=== PATIENT | female | born 2000 | race Caucasian/White ===

== ENCOUNTER 2019-12-12 19:26 | Emergency (ER) | payer OTHER, MEDICAID, SELFPAY ==
[2019-12-12 19:53] VITALS: BP 128/72; PULSE 94; RESP 20; TEMP 36.6; O2SAT 99; BMI 25.4
[2019-12-12 22:30] VITALS: BP 102/59; PULSE 74; RESP 16; O2SAT 98
--- NOTE | 2019-12-12 23:05 | ED.NAVMDI ---
HPI - Nausea/Vomiting/Diarrhea General Chief complaint: Nausea/Vomiting/Diarrhea Stated complaint: vomiting x2 days, vomited blood Time Seen by Provider: 12/12/19 21:10 Source: patient Mode of arrival: Family Vehicle Limitations: no limitations History of Present Illness HPI Narrative: 19-year-old female nonsmoker with history of asthma and GERD presents with her friend in the chief complaint of a few days of nausea, vomiting and diarrhea. She denies any fever or chills. She is not dizzy nor weak or lightheaded. She denies any exposure to sick contacts or obviously bad food. She denies any recent travel or use of antibiotics. She had an episode of vomiting earlier today that had what looked like blood specks in it at which point she became concerned and came to be seen. She denies any true hematemesis, coffee-ground emesis or dark and tarry stool. MD complaint: nausea, vomiting and diarrhea Onset (ago): day(s) Description of Vomiting: food contents and other Description of Diarrhea: watery Associated Abdominal Pain: No Severity: mild Relieving factors: none Exacerbating factors: none Associated symptoms: denies other symptoms Related Data Home Medications Medication Instructions Recorded Confirmed omeprazole magnesium [Prilosec OTC] 20 mg PO Q DAY #0 07/31/11 montelukast [Singulair] 10 mg PO QDAY #0 01/17/12 Previous Rx's Medication Instructions Recorded IBUPROFEN (#MOTRIN) 400 mg PO TIDP #30 06/03/11 MOMETASONE FUROATE (Asmanex) 0.22 mg IH Q HS PRN #1 01/31/12 ALBUTEROL (PROVENTIL INHALER) 0.09 mg IH Q6HP #1 05/05/12 Allergies Allergy/AdvReac Type Severity Reaction Status Date / Time Bee Venom Allergy Unknown LOCAL Uncoded 12/12/19 19:57 REACTION Penicillin Allergy Unknown ANAPHYLAXIS Uncoded 12/12/19 19:57 seafood Allergy Swelling Uncoded 12/12/19 19:57 of Lip/Tongue/Throat Review of Systems Constitutional Constitutional: Denies chills, Denies fatigue, Denies fever(s), Denies frequent falls, Denies lethargy and Denies weakness Eyes Eyes: Denies change in vision, Denies eye discharge, Denies irritation and Denies loss of vision ENT Ears, Nose, Mouth, and Throat: Denies change in voice, Denies dizziness, Denies neck pain, Denies sore throat and Denies throat swelling Cardiovascular Cardiovascular: Denies chest pain, Denies irregular heart rhythm, Denies lightheadedness, Denies palpitations, Denies dyspnea, Denies dyspnea on exertion and Denies orthopnea Respiratory Respiratory: Denies cough, Denies dyspnea, Denies dyspnea on exertion and Denies wheezing Gastrointestinal Gastrointestinal: Denies abdominal pain, Denies change in bowel habits, Reports diarrhea, Reports nausea and Reports vomiting Genitourinary Genitourinary: Denies hematuria, Denies flank pain, Denies urinary incontinence and Denies urinary urgency Musculoskeletal Musculoskeletal: Denies back pain, Denies muscle weakness, Denies neck pain, Denies numbness and Denies tingling Integumentary/Breasts Skin/Breast: Denies pruritus, Denies erythema, Denies rash and Denies wounds Neurologic Neurologic: Denies behavioral changes, Denies confusion, Denies dizziness, Denies frequent falls, Denies loss of vision, Denies numbness, Denies tingling and Denies weakness Psychiatric Psychiatric: Denies anxiety, Denies behavioral changes, Denies confusion, Denies depression, Denies homicidal ideation and Denies suicidal ideation Endocrine Endocrine: Denies fatigue, Denies flushing and Denies palpitations Hematologic/Lymphatic Hematologic/Lymphatic: Denies easy bruising Allergic/Immunologic Allergic/Immunologic: Denies urticaria, Denies throat swelling and Denies wheezing Patient History Social History Smoking Status: Current some day smoker Smoking Status: Current some day smoker tobacco type: cigarettes alcohol intake frequency: 0-2 drinks per day Substance Use Type: marijuana Exam Narrative Exam Narrative: GENERAL: [19] year old patient appears stated age. Well-nourished, well-developed patient, in mild distress. HEAD: Atraumatic. Normocephalic. EYES: Pupils equal round and reactive. Extraocular motions intact. No scleral icterus. No injection or drainage. ENT: Nose without bleeding, purulent drainage. Throat without erythema, tonsillar hypertrophy or exudate. Airway patent. NECK: Trachea midline. Non tender CARDIOVASCULAR: Regular rate and rhythm without murmurs, gallops, or rubs. RESPIRATORY: Clear to auscultation. Breath sounds equal bilaterally. No wheezes, rales, or rhonchi. GASTROINTESTINAL: Abdomen soft, non-tender, nondistended. EXTREMITIES: No edema or joint tenderness. BACK: Nontender without deformity or crepitance. No flank tenderness. NEURO: AOx3. SKIN: No rash or erythema of visible areas Initial Vital Signs Initial Vital Signs: Vital Signs Temperature 97.9 F 12/12/19 19:53 Pulse Rate 94 H 12/12/19 19:53 Respiratory Rate 20 12/12/19 19:53 Blood Pressure 128/72 12/12/19 19:53 Pulse Oximetry 99 12/12/19 19:53 Course Course Course Narrative: Multiple etiologies for patient's symptoms considered including: [Viral gastroenteritis versus other] Patient's symptoms improved or duration of stay with above-stated therapies. Findings and discharge diagnosis discussed with patient/family followed by verbalization of understanding Return precautions discussed with patient/family whom verbalize understanding. Orders Ordered: ED Orders 12/12/19 23:30 Comprehensive Metabolic Panel Stat Discontinued Medications Sodium Chloride (Normal Saline 0.9%) 1,000 mls @ 1,000 mls/hr IV BOLUS ONE Stop: 12/13/19 00:17 Last Infusion: 12/13/19 00:35 Dose: 0 mls/hr Documented by: Admin: 12/12/19 23:34 Dose: 1,000 mls/hr Documented by: SAMARA Ondansetron HCl (Zofran) 4 mg IV Q4HR PRN PRN Reason: Nausea And Vomiting Last Admin: 12/12/19 23:30 Dose: 4 mg Documented by: SAMARA Ondansetron HCl (Zofran Odt Prepack) 1 bottle MISC SEEINSTR ONE Stop: 12/13/19 00:36 Last Admin: 12/13/19 00:45 Dose: 1 bottle Documented by: SAMARA Pantoprazole Sodium (Protonix) 40 mg IV NOW ONE Stop: 12/12/19 23:19 Last Admin: 12/12/19 23:31 Dose: 40 mg Documented by: SAMARA Vital Signs Vital signs: Vital Signs - 8 hr 12/12/19 22:30 12/13/19 00:29 Pulse Rate 74 77 Respiratory Rate 16 Blood Pressure [Left Arm] 102/59 L 103/54 L Pulse Oximetry 98 97 MDM - Nausea/Vomiting/Diarrhea Lab Data Result diagrams: 12/12/19 23:30 Labs: Lab Results 12/12/19 Range/Units 23:30 Sodium 138 (137-145) mmol/L Potassium 3.6 (3.4-5.1) mmol/L Chloride 101 (98-107) mmol/L Carbon Dioxide 25 (22-32) mmol/L BUN 16 (7-17) mg/dL Creatinine 0.65 (0.52-1.04) mg/dL Estimated GFR > 60.0 (>60) mL/min BUN/Creatinine Ratio 24.6 H (6-22) Glucose 96 (70-100) mg/dL Calcium 10.0 (8.4-10.2) mg/dL Total Bilirubin 0.5 (0.2-1.3) mg/dL AST 28 (14-36) IU/L ALT 25 (<35) IU/L Alkaline Phosphatase 61 (38-126) U/L Total Protein 8.9 H (6.3-8.2) g/dL Albumin 5.1 H (3.5-5.0) g/dL Globulin 3.8 (1.7-4.1) g/dL Albumin/Globulin Ratio 1.3 (1.0-2.8) Discharge Plan Departure Patient Disposition: Home Clinical Impression: Vomiting and diarrhea Discharge Date/Time: 12/13/19 00:58 Instructions: Diarrhea, DI for Dehydration -- Adult, DI for Vomiting -- Adult Activity Restrictions/Additional Instructions: 1. Drink plenty of fluids with frequent small sips. 2. For the next 24 hours a clear liquid diet is advised. After that please employ a brat diet which would include bananas, rice, apples, toast. 3. Please take medications as directed. 4. Please follow-up with your doctor in the next 1-2 days. Call the office for an appointment. 5. Please return to the emergency Department for any worsening or persistent symptoms, such as increasing pain or fever. Prescriptions: No Action IBUPROFEN (#MOTRIN) 400 mg PO TIDP Qty: 30 RF: 0 omeprazole magnesium [Prilosec OTC] 20 MG tablet,delayed release (DR/EC) 20 mg PO Q DAY Qty: 0 RF: 0 montelukast [Singulair] 10 MG tablet 10 mg PO QDAY Qty: 0 RF: 0 MOMETASONE FUROATE (Asmanex) 0.22 mg IH Q HS PRNQty: 1 RF: 1 ALBUTEROL (PROVENTIL INHALER) 0.09 mg IH Q6HP Qty: 1 RF: 2 Referrals: [facility] [Outside]
[2019-12-12] MEDS: ONDANSETRON 4 MG/2 ML INJ IV (23:30)
[2019-12-12] MEDS: PANTOPRAZOLE 40 MG VIAL IV (23:31)
[2019-12-12] MEDS: SODIUM CHLORIDE 0.9% 1,000 ML 1000 ML IV (23:34)
[2019-12-12 23:51] LABS: Alanine Aminotransferase 25 IU/L (<35); Albumin 5.1 g/dL (3.5-5.0); Albumin Globulin Ratio 1.3 (1.0-2.8); Alkaline Phosphatase 61 U/L (38-126); Aspartate Aminotransferase 28 IU/L (14-36); BUN Creatinine Ratio 24.6 (6-22); Bilirubin Total 0.5 mg/dL (0.2-1.3); Blood Urea Nitrogen 16 mg/dL (7-17); Carbon Dioxide 25 mmol/L (22-32); Chloride 101 mmol/L (98-107); Estimated Glomerular Filt Rate > 60.0 mL/min (>60); Globulin 3.8 g/dL (1.7-4.1); Glucose 96 mg/dL (70-100); HEMOLYSIS < 15 (0-50); Potassium 3.6 mmol/L (3.4-5.1); Sodium 138 mmol/L (137-145); Total Protein 8.9 g/dL (6.3-8.2)
[2019-12-13 00:29] VITALS: BP 103/54; PULSE 77; O2SAT 97
[2019-12-13] MEDS: ONDANSETRON 4 MG ODT PREPACK 1 BOTTLE MISC (00:45)
== END 2019-12-13 00:58 | disposition home or self-care (01) ==
PROVIDERS: Emergency Provider Emergency Medicine
DX: R11.2 Nausea with vomiting, unspecified (principal); R19.7 Diarrhea, unspecified
CPT/HCPCS: 36415; 80053; 96361; 96374; 96375; 99284; C9113; J2405

== ENCOUNTER 2022-04-16 03:03 | Emergency (ER) | payer OTHER, MEDICAID, SELFPAY ==
[2022-04-16 03:27] VITALS: BP 125/64; PULSE 94; RESP 17; TEMP 36.2; O2SAT 98; BMI 24.9
[2022-04-16] MEDS: SODIUM CHLORIDE 0.9% 1,000 ML 1000 ML IV (04:04)
[2022-04-16] MEDS: ONDANSETRON 4 MG/2 ML INJ IV (04:05)
[2022-04-16 04:18] LABS: Add Manual Diff / Slide Review NO; Basophils Absolute Auto 0 /uL (0-100); Basophils Percent Auto 0.3 % (0-2); Eosinophils Absolute Auto 0 /uL (0-450); Eosinophils Percent Auto 0.1 % (2-4); Hematocrit 41.8 % (36-46); Hemoglobin 14.6 g/dL (12.0-16.0); Lymphocytes Absolute Auto 1500 /uL (1100-4500); Lymphocytes Percent Auto 16.5 % (25-40); Mean Corpuscular HGB Conc 34.9 % (30-36); Mean Corpuscular Hemoglobin 29.5 PG (26-34); Mean Corpuscular Volume 84.6 fL (80-100); Monocytes Absolute Auto 600 /uL (0-900); Monocytes Percent Auto 7.1 % (3-14); Neutrophils Absolute Auto 7000 /uL (1500-7000); Platelet Count 235 X10^3/uL (150-400); Red Blood Cell Count 4.94 X10^6/uL (4.0-5.2); Red Cell Distribution Width 12.8 % (11.6-14.8); White Blood Cell Count 9.2 X10^3/uL (4.5-11.0)
[2022-04-16 04:24] LABS: Alanine Aminotransferase 21 IU/L (<35); Albumin 4.9 g/dL (3.5-5.0); Albumin Globulin Ratio 1.4 (1.0-2.8); Alkaline Phosphatase 61 U/L (38-126); Aspartate Aminotransferase 24 IU/L (14-36); BUN Creatinine Ratio 22.6 (6-22); Blood Urea Nitrogen 12 mg/dL (7-17); Calcium 9.2 mg/dL (8.4-10.2); Carbon Dioxide 17 mmol/L (22-32); Chloride 100 mmol/L (98-107); Estimated Glomerular Filt Rate > 60 mL/min (>60); Globulin 3.6 g/dL (1.7-4.1); Glucose 83 mg/dL (70-100); HEMOLYSIS 23 (0-50); Potassium 3.4 mmol/L (3.4-5.1); Sodium 135 mmol/L (137-145); Total Protein 8.5 g/dL (6.3-8.2)
--- NOTE | 2022-04-16 04:48 | ED.NAVMDI ---
HPI - Nausea/Vomiting/Diarrhea General Chief complaint: Nausea/Vomiting/Diarrhea Stated complaint: MORNING SICKNESS 8 WEEKS ALONG Time Seen by Provider: 04/16/22 03:29 Source: patient Mode of arrival: Ambulatory History of Present Illness HPI Narrative: 21-year-old female nonsmoker at 8 weeks presents at the request of her Ob group for help with persistent nausea and vomiting. The patient has had increasing difficulty as her has progressed despite having access to Zofran and the equivalent of dye clear just. She had recently been seen at an outside facility when visiting her mother in [place] and was diagnosed with hyperemesis as well as UTI and is now on day 4 of Keflex. She reports no dysuria, frequency or urgency. She has no abdominal pain, vaginal bleeding or leakage of fluid. She states that most solids make her nauseated and she frequently vomits. She does have some burning in her epigastrium and has been belching. She is passing gas and having normal bowel movements. Related Data Home Medications Medication Instructions Recorded Confirmed omeprazole magnesium 20 mg 20 mg PO Q DAY ##0 07/31/11 tablet,delayed release (Prilosec OTC) montelukast 10 mg tablet 10 mg PO QDAY ##0 01/17/12 (Singulair) Previous Rx's Medication Instructions Recorded IBUPROFEN (#MOTRIN) 400 mg PO TIDP ##30 06/03/11 MOMETASONE FUROATE (Asmanex) 0.22 mg IH Q HS PRN ##1 01/31/12 ALBUTEROL (PROVENTIL INHALER) 0.09 mg IH Q6HP ##1 05/05/12 Allergies Allergy/AdvReac Type Severity Reaction Status Date / Time Bee Venom Allergy Unknown LOCAL Uncoded 12/12/19 19:57 REACTION Penicillin Allergy Unknown ANAPHYLAXIS Uncoded 12/12/19 19:57 seafood Allergy Swelling Uncoded 12/12/19 19:57 of Lip/Tongue/Throat Patient History Social History Smoking Status: Current some day smoker Smoking Status: Current some day smoker tobacco type: cigarettes alcohol intake frequency: 0-2 drinks per day Substance Use Type: marijuana Exam Narrative Exam Narrative: GENERAL: [21] year old patient appears stated age. Well-developed patient, in mild distress. HEAD: Atraumatic. Normocephalic. EYES: Pupils equal round and reactive. Extraocular motions intact. No scleral icterus. No injection or drainage. ENT: Nose without bleeding, purulent drainage. Throat without erythema, tonsillar hypertrophy or exudate. Airway patent. NECK: Trachea midline. Non tender CARDIOVASCULAR: Regular rate and rhythm without murmurs, gallops, or rubs. RESPIRATORY: Clear to auscultation. Breath sounds equal bilaterally. No wheezes, rales, or rhonchi. GASTROINTESTINAL: Abdomen soft, non-tender, nondistended. EXTREMITIES: No edema or joint tenderness. BACK: Nontender without deformity or crepitance. No flank tenderness. NEURO: AOx3. SKIN: No rash or erythema of visible areas Initial Vital Signs Initial Vital Signs: Vital Signs Temperature 97.1 F L 04/16/22 03:27 Pulse Rate 94 H 04/16/22 03:27 Respiratory Rate 17 04/16/22 03:27 Blood Pressure 125/64 04/16/22 03:27 Pulse Oximetry 98 04/16/22 03:27 Oxygen Delivery Method 04/16/22 03:27 Course Orders Ordered: ED Orders 04/16/22 04:05 Complete Blood Count AUTO DIFF Stat Comprehensive Metabolic Panel Stat Ketones (Beta-Hydroxybutyrate) Stat 04/16/22 04:55 Urinalysis and Microscopic Stat Famotidine (Famotidine 20 Mg/2 Ml Vial) 20 mg IV NOW TISHA Discontinued Medications Sodium Chloride (Normal Saline 0.9%) 1,000 mls @ 1,000 mls/hr IV BOLUS ONE Stop: 04/16/22 04:43 Last Admin: 04/16/22 04:04 Dose: 1,000 mls/hr Documented By: JOÃO Ondansetron HCl (Ondansetron 4 Mg/2 Ml Inj) 4 mg IV NOW ONE Stop: 04/16/22 03:46 Last Admin: 04/16/22 04:05 Dose: 4 mg Documented By: JOÃO Reevaluation(s) Reevaluation #1: Patient significantly improved after above-stated therapies, tolerating oral hydration without significant difficulty Vital Signs Vital signs: Vital Signs - 8 hr 04/16/22 03:27 Temperature 97.1 F L Pulse Rate 94 H Respiratory Rate 17 Blood Pressure 125/64 Pulse Oximetry 98 Oxygen Delivery Method Room Air MDM - Nausea/Vomiting/Diarrhea Lab Data Result diagrams: 04/16/22 04:05 04/16/22 04:05 Labs: Lab Results 04/16/22 04/16/22 04/16/22 Range/Units 04:05 04:05 04:05 WBC 9.2 (4.5-11.0) X10^3/uL RBC 4.94 (4.0-5.2) X10^6/uL Hgb 14.6 (12.0-16.0) g/dL Hct 41.8 (36-46) % MCV 84.6 (80-100) fL MCH 29.5 (26-34) PG MCHC 34.9 (30-36) % RDW 12.8 (11.6-14.8) % Plt Count 235 (150-400) X10^3/uL Neut % (Auto) 76.0 H (50-75) % Lymph % (Auto) 16.5 L (25-40) % [place] % (Auto) 7.1 (3-14) % Eos % (Auto) 0.1 L (2-4) % Baso % (Auto) 0.3 (0-2) % Neut # (Auto) 7000 (7966-9287) /uL Lymph # (Auto) 1500 (8569-1813) /uL [place] # (Auto) 600 (0-900) /uL Eos # (Auto) 0 (0-450) /uL Baso # (Auto) 0 (0-100) /uL Sodium 135 L (137-145) mmol/L Potassium 3.4 (3.4-5.1) mmol/L Chloride 100 (98-107) mmol/L Carbon Dioxide 17 L (22-32) mmol/L BUN 12 (7-17) mg/dL Creatinine 0.53 (0.52-1.04) mg/dL Estimated GFR > 60 (>60) mL/min BUN/Creatinine Ratio 22.6 H (6-22) Glucose 83 (70-100) mg/dL Calcium 9.2 (8.4-10.2) mg/dL Total Bilirubin 1.0 (0.2-1.3) mg/dL AST 24 (14-36) IU/L ALT 21 (<35) IU/L Alkaline Phosphatase 61 (38-126) U/L Total Protein 8.5 H (6.3-8.2) g/dL Albumin 4.9 (3.5-5.0) g/dL Globulin 3.6 (1.7-4.1) g/dL Albumin/Globulin Ratio 1.4 (1.0-2.8) Urine Color Urine Appearance Urine pH (4.5-8.0) Ur Specific [place] (1.000-1.035) Urine Protein (Negative) Urine Glucose (UA) (Negative) g/dL Urine Ketones (NEGATIVE) Urine Occult Blood (Negative) Urine Nitrate (Negative) Urine Bilirubin (NEGATIVE) Urine Urobilinogen (0.2) E.U./dL Ur Leukocyte Esterase (NEGATIVE) Ketones 2.91 H (<0.27) mmol/L 04/16/22 Range/Units 04:55 WBC (4.5-11.0) X10^3/uL RBC (4.0-5.2) X10^6/uL Hgb (12.0-16.0) g/dL Hct (36-46) % MCV (80-100) fL MCH (26-34) PG MCHC (30-36) % RDW (11.6-14.8) % Plt Count (150-400) X10^3/uL Neut % (Auto) (50-75) % Lymph % (Auto) (25-40) % [place] % (Auto) (3-14) % Eos % (Auto) (2-4) % Baso % (Auto) (0-2) % Neut # (Auto) (7577-8943) /uL Lymph # (Auto) (1182-0325) /uL [place] # (Auto) (0-900) /uL Eos # (Auto) (0-450) /uL Baso # (Auto) (0-100) /uL Sodium (137-145) mmol/L Potassium (3.4-5.1) mmol/L Chloride (98-107) mmol/L Carbon Dioxide (22-32) mmol/L BUN (7-17) mg/dL Creatinine (0.52-1.04) mg/dL Estimated GFR (>60) mL/min BUN/Creatinine Ratio (6-22) Glucose (70-100) mg/dL Calcium (8.4-10.2) mg/dL Total Bilirubin (0.2-1.3) mg/dL AST (14-36) IU/L ALT (<35) IU/L Alkaline Phosphatase (38-126) U/L Total Protein (6.3-8.2) g/dL Albumin (3.5-5.0) g/dL Globulin (1.7-4.1) g/dL Albumin/Globulin Ratio (1.0-2.8) Urine Color Yellow Urine Appearance Clear Urine pH 5.5 (4.5-8.0) Ur Specific [place] >=1.030 H (1.000-1.035) Urine Protein 1+ H (Negative) Urine Glucose (UA) Negative (Negative) g/dL Urine Ketones 3+ H (NEGATIVE) Urine Occult Blood Trace-intact (Negative) Urine Nitrate Negative (Negative) Urine Bilirubin Negative (NEGATIVE) Urine Urobilinogen 0.2 (0.2) E.U./dL Ur Leukocyte Esterase Negative (NEGATIVE) Ketones (<0.27) mmol/L Discharge Plan Departure Patient Disposition: Home Clinical Impression: Nausea and vomiting during Instructions: Nausea of (Alternative Therapy), DI for Dehydration -- Adult, DI for Vomiting -- Adult Activity Restrictions/Additional Instructions: *You have been diagnosed with [hyperemesis gravidarum] *What to do: *Please continue to take your regular medications as directed. Please consider adding [id number] Pepcid to help with the acid production as we discussed [ ] New medication prescriptions sent to your pharmacy: [ ] [ ] New medication written as a paper prescription [x ] No new medications given. *Please follow up with your primary care provider in 2-3 days, call for an appointment. Let them know you were seen in the Emergency Department and that we ask that you be seen in follow up. We will electronically transmit a record of today's note if your PCP is in our system *If you do not have a primary care provider please contact the [facility] Resource line at [phone]. They will ask some questions about your medical history and help get you set up with a doctor in the community. *Return to Emergency Department if you should have any new, worsening or concerning symptoms, such as [fever greater than 101 F, shaking chills, worsening pain, persistent vomiting or other bothersome symptoms] Prescriptions: No Action IBUPROFEN (#MOTRIN) 400 mg PO TIDP Qty: 30 0RF omeprazole magnesium [Prilosec OTC] 20 MG tablet,delayed release (DR/EC) 20 mg PO Q DAY Qty: 0 montelukast [Singulair] 10 MG tablet 10 mg PO QDAY Qty: 0 MOMETASONE FUROATE (Asmanex) 0.22 mg IH Q HS PRNQty: 1 1RF ALBUTEROL (PROVENTIL INHALER) 0.09 mg IH Q6HP Qty: 1 2RF
[2022-04-16 05:29] LABS: Ketones (Beta-Hydroxybutyrate) 2.91 mmol/L (<0.27)
[2022-04-16 05:57] LABS: Appearance Urine UA CLEAR; Bilirubin Urine UA NEGATIVE (NEGATIVE); Color Urine UA YELLOW; Glucose Urine UA NEGATIVE (Negative); Ketones Urine UA 3+ (NEGATIVE); Leukocyte Esterase Urine UA NEGATIVE (NEGATIVE); Nitrite Urine UA NEGATIVE (Negative); Occult Blood Urine UA TRACE-INTACT (Negative); Protein Urine UA 1+ (Negative); Specific Gravity Urine UA >=1.030 (1.000-1.035); Urobilinogen Urine UA 0.2 E.U./dL (0.2)
[2022-04-16 06:10] LABS: pH Urine UA 5.5 (4.5-8.0)
[2022-04-16 06:37] LABS: RBC Urine 0-1/HPF (0-5/HPF); Squamous Epithelial Cell Urine 1-5 /HPF (0-5/HPF); WBC Urine 1-5/HPF (0-5/HPF)
[2022-04-16 06:38] LABS: Bacteria Urine Few (2-10); Culture Indicated Urine Cult Not Indicated; Mucus Urine 1+ (Negative)
[2022-04-16] MEDS: FAMOTIDINE 20 MG/2 ML VIAL IV (07:22)
[2022-04-16 07:28] VITALS: BP 115/56; PULSE 89; RESP 18; O2SAT 98
== END 2022-04-16 07:37 | disposition home or self-care (01) ==
PROVIDERS: Emergency Provider Emergency Medicine
DX: O21.9 Vomiting of pregnancy, unspecified (principal); Z3A.08 8 weeks gestation of pregnancy
CPT/HCPCS: 80053; 81001; 82009; 85025; 96361; 96374; 96375; 99283; 99284; J2405

== ENCOUNTER 2024-01-11 17:14 | Emergency (ER) | payer OTHER, SELFPAY ==
[2024-01-11] VITALS (55 sets, daily range): BP systolic 101–151; BP diastolic 56–88; PULSE 85–131; RESP 12–46; TEMP 36.9; O2SAT 80–100; BMI 29.1
--- NOTE | 2024-01-11 17:22 | DI.CT.S_ITS ---
PROCEDURE: CT HEAD/BRAIN WO CON INDICATIONS: Trauma TECHNIQUE: Noncontrast 4.5 mm thick angled axial sections acquired from the foramen magnum to the vertex, with coronal and sagittal reformats. For radiation dose reduction, the following was used: automated exposure control, adjustment of mA and/or kV according to patient size. COMPARISON: None. FINDINGS: Image quality: Diagnostic. CSF spaces: Basal cisterns are patent. No extra-axial fluid collections. Ventricles are normal in size and shape. Brain: No midline shift. No intracranial masses or hemorrhage. Marks-white matter interface is normal. Skull and face: Calvarium and visualized facial bones are intact, without suspicious lesions. Sinuses: Visualized sinuses and mastoids are clear. IMPRESSION: No acute intracranial pathology. Dictated by: Rojas Mckenzie M.D. on 01/11/2024 at 19:00 Approved by: Rojas Mckenzie M.D. on 01/11/2024 at 19:00
--- NOTE | 2024-01-11 17:22 | DI.CT.S_ITS ---
PROCEDURE: CT CERVICAL SPINE WO CON INDICATIONS: Trauma TECHNIQUE: Noncontrast 3 mm thick sections acquired from the skull base to the T4 level. Sagittal and coronal reformats were then constructed. For radiation dose reduction, the following was used: automated exposure control, adjustment of mA and/or kV according to patient size. COMPARISON: None. FINDINGS: Image quality: Excellent. Bones: No fractures or dislocations. Visualized superior ribs are intact. Soft tissues: Prevertebral soft tissues are normal in thickness. No paravertebral hematomas. No apical pneumothoraces. IMPRESSION: No displaced fracture or traumatic subluxation. Dictated by: Rojas Mckenzie M.D. on 01/11/2024 at 18:59 Approved by: Rojas Mckenzie M.D. on 01/11/2024 at 18:59
--- NOTE | 2024-01-11 17:22 | DI.CT.S_ITS ---
PROCEDURE: CT CHEST ABD PEL W CON INDICATIONS: left chest pain, seatbelt sign, r wrist pain, left knee pain TECHNIQUE: After the administration of intravenous contrast, 5 mm thick sections acquired from the lung apices to the symphysis. 2.5 mm thick coronal and sagittal reformats were acquired. Additional 7 mm thick coronal maximum intensity projection (MIP) reformats acquired through the lungs. Optional 10-minute delayed imaging may be performed from the kidneys to the bladder. For radiation dose reduction, the following was used: automated exposure control, adjustment of mA and/or kV according to patient size. COMPARISON: None. FINDINGS: Image quality: Diagnostic. CHEST: Lower Neck: No enlarged lymph nodes. Thyroid: No thyroid nodules which require sonographic evaluation. Axillae: No enlarged lymph nodes. Chest Wall: No subcutaneous gas. Lungs and Pleura: Right-sided ground-glass nodules in the right upper lobe No acute airspace opacities. No pneumothorax or hemothorax. Mediastinum: No mediastinal hematomas. Heart size is normal. No pericardial effusion. Thoracic aorta and pulmonary arteries demonstrate normal size and enhancement. No mediastinal or hilar adenopathy. Esophagus is normal in caliber. No hiatal hernia. ABDOMEN: Liver: No lacerations. Gallbladder: No radiopaque gallstones or wall thickening. Biliary ducts: No biliary dilation. Pancreas: Homogenous enhancement. Spleen: Homogenous enhancement without laceration or hematoma. Adrenal Glands: Symmetric enhancement. Kidneys and Ureters: Symmetric enhancement. No hydronephrosis. No solid mass. No complex renal cystic lesion which requires follow up. Stomach and Bowel: Normal colonic caliber, without significant wall thickening. Peritoneum: No abnormal intraperitoneal fluid. No free air. Ventral Wall: No hernia. Abdominal Nodes: No retroperitoneal or mesenteric adenopathy by size criteria. Vessels: Aorta and inferior vena cava are normal in size. PELVIS: Pelvic Organs: Unremarkable. Bladder: Normal thickness. Pelvic Nodes: No enlarged lymph nodes. Miscellaneous: No inguinal hernias are seen. Bones: Pelvic ring and hip joints appear intact. Minimally displaced left anterior 3rd through 5th rib fractures. Displaced right wrist fractures. IMPRESSION: Minimally displaced left anterior 3rd through 5th rib fractures. A grouping of right-sided ground-glass nodules in the right upper lobe. Findings are suspicious for contusion. No pneumothorax or effusions. Right wrist fractures, better detailed on same day wrist x-rays. Dictated by: Rojas Mckenzie M.D. on 01/11/2024 at 18:54 Approved by: Rojas Mckenzie M.D. on 01/11/2024 at 18:58
--- NOTE | 2024-01-11 17:22 | DI.RAD.S_ITS ---
PROCEDURE: XR CHEST 1V INDICATIONS: seatbelt sign, deformity wrist, knee TECHNIQUE: One view of the chest was acquired. COMPARISON: None. FINDINGS: Surgical changes and devices: None. Lungs and pleura: Lungs are clear. No pleural effusions or pneumothorax. Mediastinum: Mediastinal contours appear normal. Heart size is normal. Bones and chest wall: No suspicious bony lesions. Overlying soft tissues appear unremarkable. IMPRESSION: No acute cardiopulmonary abnormality is seen. Dictated by: Rojas Mckenzie M.D. on 01/11/2024 at 18:12 Approved by: Rojas Mckenzie M.D. on 01/11/2024 at 18:12
--- NOTE | 2024-01-11 17:22 | DI.RAD.S_ITS ---
PROCEDURE: XR PELVIS 1-2V INDICATIONS: seatbelt sign, deformity wrist, knee TECHNIQUE: 1 view(s) of the pelvis acquired. COMPARISON: None. FINDINGS: Bones: No fractures or dislocations. No suspicious bony lesions. Soft tissues: Visualized bowel gas pattern is normal. No suspicious soft tissue calcifications. IMPRESSION: No acute bony abnormality. Dictated by: Rojas Mckenzie M.D. on 01/11/2024 at 18:18 Approved by: Rojas Mckenzie M.D. on 01/11/2024 at 18:18
--- NOTE | 2024-01-11 17:23 | DI.RAD.S_ITS ---
PROCEDURE: XR KNEE LT 3V INDICATIONS: Left knee TECHNIQUE: 2 views of the knee were acquired. COMPARISON: None. FINDINGS: Bones: Mildly displaced, intra-articular fracture of the tibial plateau. Soft tissues: Moderate joint effusion. No suspicious soft tissue calcifications. IMPRESSION: Intra-articular tibial plateau fracture. Dictated by: Rojas Mckenzie M.D. on 01/11/2024 at 18:18 Approved by: Rojas Mckenzie M.D. on 01/11/2024 at 18:19
--- NOTE | 2024-01-11 17:23 | DI.RAD.S_ITS ---
PROCEDURE: XR WRIST RT MIN 3V INDICATIONS: Wrist deformity and pain. TECHNIQUE: 3 views of the wrist were acquired. COMPARISON: [facility], WRIST MINIMUM 3 VIEWS RIGHT, 10/31/2011, 9:08. [facility], WRIST MINIMUM 3 VIEWS RIGHT, 10/17/2011, 12:11. FINDINGS: Bones: Displaced, foreshortened fractures of the distal radial and ulnar metadiaphysis. The distal fracture fragments are displaced medially and dorsally. Soft tissues: No suspicious soft tissue calcifications. IMPRESSION: Significantly displaced fractures of the distal ulna and radius. Dictated by: Rojas Mckenzie M.D. on 01/11/2024 at 18:16 Approved by: Rojas Mckenzie M.D. on 01/11/2024 at 18:17
[2024-01-11] MEDS: TET,DIPH,PERTUSS(ACELL),VAC/PF 0.5 ML SYRINGE IM (17:31)
[2024-01-11] MEDS: MORPHINE 4 MG/ML INJ IV (17:31)
[2024-01-11] MEDS: ONDANSETRON 4 MG/2 ML INJ IV ×3 (17:31→22:33)
[2024-01-11] MEDS: SODIUM CHLORIDE 0.9% 1,000 ML 150 ML IV (17:32)
[2024-01-11] MEDS: ALBUTEROL 2.5 MG/3 ML NEB (ADULT) INH (17:54)
[2024-01-11 17:59] LABS: Add Manual Diff / Slide Review NO; Basophils Absolute Auto 0 /uL (0-100); Basophils Percent Auto 0.3 % (0-2); Eosinophils Absolute Auto 500 /uL (0-450); Eosinophils Percent Auto 4.4 % (2-4); Hemoglobin 12.1 g/dL (12.0-16.0); Lymphocytes Absolute Auto 1600 /uL (1100-4500); Mean Corpuscular HGB Conc 32.7 % (30-36); Mean Corpuscular Hemoglobin 26.2 PG (26-34); Mean Corpuscular Volume 80.2 fL (80-100); Monocytes Absolute Auto 600 /uL (0-900); Monocytes Percent Auto 4.9 % (3-14); Neutrophils Absolute Auto 9300 /uL (1500-7000); Neutrophils Percent Auto 77.4 % (50-75); Platelet Count 215 X10^3/uL (150-400); Red Blood Cell Count 4.61 X10^6/uL (4.0-5.2); Red Cell Distribution Width 15.7 % (11.6-14.8)
[2024-01-11] MEDS: HYDROMORPHONE 1 MG INJ IV ×3 (17:59→22:32)
[2024-01-11 18:17] LABS: INR 1.2 (0.9-1.3); Prothrombin Time 13.7 SECONDS (9.4-12.5)
[2024-01-11 18:20] LABS: PTT Partial Thromboplastin Tim 27 SECONDS (25.1-36.5)
[2024-01-11 18:21] LABS: Lactate (Lactic Acid) 1.3 mmol/L (0.7-2.1)
[2024-01-11 18:23] LABS: Alanine Aminotransferase 22 IU/L (<35); Albumin 3.7 g/dL (3.5-5.0); Albumin Globulin Ratio 1.3 (1.0-2.8); Alkaline Phosphatase 71 U/L (38-126); Aspartate Aminotransferase 31 IU/L (14-36); BUN Creatinine Ratio 18.4 (6-22); Bilirubin Total 0.3 mg/dL (0.2-1.3); Blood Urea Nitrogen 9 mg/dL (7-17); Calcium 7.6 mg/dL (8.4-10.2); Carbon Dioxide 16 mmol/L (22-32); Chloride 116 mmol/L (98-107); Estimated Glomerular Filt Rate > 60 mL/min (>60); Ethanol (ETOH) < 10 mg/dL; Globulin 2.8 g/dL (1.7-4.1); Glucose 86 mg/dL (70-100); HEMOLYSIS < 15 (0-50); Lipase 93 U/L (23-300); Potassium 3.1 mmol/L (3.4-5.1); Sodium 140 mmol/L (137-145); Total Protein 6.5 g/dL (6.3-8.2)
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
[2024-01-11] MEDS: LORazepam 2 MG/ML INJ IV (18:54)
[2024-01-11] MEDS: KETAMINE 500 MG/5 ML INJ 100 MG IV (18:59)
--- NOTE | 2024-01-11 19:10 | PC.NURSE ---
Sugar tong splint placed on right wrist.
--- NOTE | 2024-01-11 19:12 | PC.NURSE ---
One attempt to reduction of right wrist, confirmed with bedside xray for proper placement. Simultaneously left knee immobilizer placed. Patient tolerating well.
--- NOTE | 2024-01-11 19:15 | DI.RAD.S_ITS ---
PROCEDURE: XR WRIST RT 2V INDICATIONS: post reduction TECHNIQUE: 2 views of the wrist were acquired. COMPARISON: [facility], CR, XR WRIST RT MIN 3V, 01/11/2024, 17:17. [facility], , WRIST MINIMUM 3 VIEWS RIGHT, 10/31/2011, 9:08. FINDINGS: Bones: Interval reduction, with improved alignment of the radius and ulna. The hamate appears dislocated. Soft tissues: No suspicious soft tissue calcifications. IMPRESSION: Interval reduction with improved alignment of the radial and ulnar fractures. Possible dislocation of the hamate. Dictated by: Rojas Mckenzie M.D. on 01/11/2024 at 19:28 Approved by: Rojas Mckenzie M.D. on 01/11/2024 at 19:30
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
--- NOTE | 2024-01-11 22:53 | PC.NURSE ---
pt c/o left pinky toe feeling like it was asleep, cap refill noted to be 3-5 sec, knee immobilizer loosened and cap refill now at <2 sec, pt c/o pain to the left outer foot with tenderness noted, Dr Olivas in to evaluate foot, no new orders noted
== END 2024-01-11 22:57 | disposition short-term general hospital (02) ==
PROVIDERS: Emergency Medicine; Emergency Provider Emergency Medicine
DX: S62.101A Fracture of unspecified carpal bone, right wrist, initial encounter for closed fracture (principal); S82.142A Displaced bicondylar fracture of left tibia, initial encounter for closed fracture; S22.42XA Multiple fractures of ribs, left side, initial encounter for closed fracture; V89.2XXA Person injured in unspecified motor-vehicle accident, traffic, initial encounter; Z23 Encounter for immunization
CPT/HCPCS: 25605; 29125; 70450; 71045; 71260; 72125; 72170; 73100; 73110; 73562; 74177; 80053; 80320; 83605; 83690; 85025; 85610; 85730; 86850; 86900; 86901; 90471; 93005; 94640; 96374; 96375; 96376; 99152; 99285; 90715; J1170; J2060; J2270; J2405; J7613; Q9967

== ENCOUNTER 2024-02-06 14:59 | Emergency (ER) | payer OTHER, MEDICAID, SELFPAY ==
[2024-02-06] VITALS (23 sets, daily range): BP systolic 84–122; BP diastolic 48–73; PULSE 81–110; RESP 10–24; TEMP 36.8; O2SAT 94–100; BMI 27.3
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
--- NOTE | 2024-02-06 15:27 | DI.RAD.S_ITS ---
PROCEDURE: XR CHEST 1V INDICATIONS: shortness of breath and sudden pain right side recent surger TECHNIQUE: One view of the chest was acquired. COMPARISON: [facility], CR, XR CHEST 1V, 01/11/2024, 17:17. FINDINGS: Surgical changes and devices: None. Lungs and pleura: Lungs are clear. No pleural effusions or pneumothorax. Mediastinum: Mediastinal contours appear normal. Heart size is normal. Bones and chest wall: No suspicious bony lesions. Overlying soft tissues appear unremarkable. IMPRESSION: No acute cardiopulmonary abnormality is seen. Dictated by: Simeon Shin M.D. on 02/06/2024 at 16:13 Approved by: Simeon Shin M.D. on 02/06/2024 at 16:13
--- NOTE | 2024-02-06 15:28 | DI.CT.S_ITS ---
PROCEDURE: CT ANGIO CHEST PE PROTOCOL INDICATIONS: severe pain hypotensive TECHNIQUE: After the administration of intravenous contrast, 2 mm thick sections acquired from the pulmonary apices to the posterior costophrenic angles. 3-dimensional maximum intensity projection (MIP) coronal and sagittal reformats were then acquired through the thorax. For radiation dose reduction, the following was used: automated exposure control, adjustment of mA and/or kV according to patient size. COMPARISON: [facility], CT, CT CHEST ABD PEL W CON, 01/11/2024, 18:08. FINDINGS: Image quality: Diagnostic. Pulmonary arteries: Pulmonary arteries are normal in size, and demonstrate no intraluminal filling defects to suggest central pulmonary embolism. Lower Neck: No enlarged lymph nodes. Thyroid: No thyroid nodules which require sonographic follow up, per consensus guidelines. Axillae: No enlarged lymph nodes. Chest Wall: Unremarkable. Bones: Unremarkable. Lungs and Pleura: No pneumothorax or pleural effusions. No consolidation or suspicious nodules. Heart: Heart size is normal. No pericardial effusion. Thoracic Vessels: No aortic aneurysm. Mediastinum and Sade: No enlarged lymph nodes. Esophagus: No wall thickening. No hiatal hernia. Upper Abdomen: Visualized upper abdomen solid organs and bowel loops appear normal. IMPRESSION: No pulmonary embolus. No acute cardiopulmonary process. Dictated by: Simeon Shin M.D. on 02/06/2024 at 16:17 Approved by: Simeon Shin M.D. on 02/06/2024 at 16:18
[2024-02-06] MEDS: HYDROMORPHONE 1 MG INJ IV (15:38)
[2024-02-06 15:39] LABS: Add Manual Diff / Slide Review NO; Basophils Absolute Auto 100 /uL (0-100); Eosinophils Absolute Auto 200 /uL (0-450); Eosinophils Percent Auto 3.2 % (2-4); Hematocrit 28.9 % (36-46); Hemoglobin 9.4 g/dL (12.0-16.0); Lymphocytes Absolute Auto 1900 /uL (1100-4500); Lymphocytes Percent Auto 34.9 % (25-40); Mean Corpuscular HGB Conc 32.6 % (30-36); Mean Corpuscular Hemoglobin 25.1 PG (26-34); Mean Corpuscular Volume 76.9 fL (80-100); Monocytes Absolute Auto 400 /uL (0-900); Monocytes Percent Auto 7.3 % (3-14); Neutrophils Absolute Auto 2900 /uL (1500-7000); Neutrophils Percent Auto 53.6 % (50-75); Platelet Count 343 X10^3/uL (150-400); Red Blood Cell Count 3.75 X10^6/uL (4.0-5.2); Red Cell Distribution Width 16.1 % (11.6-14.8); White Blood Cell Count 5.4 X10^3/uL (4.5-11.0)
[2024-02-06 15:54] LABS: Alanine Aminotransferase 20 IU/L (<35); Albumin 4.4 g/dL (3.5-5.0); Albumin Globulin Ratio 1.2 (1.0-2.8); Alkaline Phosphatase 108 U/L (38-126); Aspartate Aminotransferase 24 IU/L (14-36); BUN Creatinine Ratio 22.7 (6-22); Bilirubin Total 0.5 mg/dL (0.2-1.3); Blood Urea Nitrogen 15 mg/dL (7-17); Calcium 9.3 mg/dL (8.4-10.2); Carbon Dioxide 27 mmol/L (22-32); Chloride 106 mmol/L (98-107); Estimated Glomerular Filt Rate > 60 mL/min (>60); Globulin 3.8 g/dL (1.7-4.1); Glucose 94 mg/dL (70-100); HEMOLYSIS < 15 (0-50); Potassium 3.7 mmol/L (3.4-5.1); Sodium 140 mmol/L (137-145); Total Protein 8.2 g/dL (6.3-8.2)
[2024-02-06 16:01] LABS: Pregnancy Test Serum,Qual Negative (Negative)
[2024-02-06] MEDS: KETOROLAC 30 MG/ML VIAL 15 MG IV (17:10)
[2024-02-06] MEDS: diazePAM 10 MG/2 ML SYRINGE 2 MG IV (17:10)
== END 2024-02-06 17:57 | disposition home or self-care (01) ==
PROVIDERS: Emergency Provider Emergency Medicine
DX: M62.838 Other muscle spasm (principal); R07.9 Chest pain, unspecified
CPT/HCPCS: 36415; 71045; 71275; 80053; 81003; 84703; 85025; 93005; 96374; 96375; 99284; J1170; J1885; J3360

== ENCOUNTER 2024-02-12 13:57 | Emergency (ER) | payer OTHER, MEDICAID, SELFPAY ==
[2024-02-12] VITALS (12 sets, daily range): BP systolic 105–124; BP diastolic 60–68; PULSE 86–117; RESP 11–26; TEMP 37.1; O2SAT 97–100; BMI 28.3
[2024-02-12 15:27] LABS: Add Manual Diff / Slide Review NO; Basophils Absolute Auto 0 /uL (0-100); Basophils Percent Auto 0.7 % (0-2); Eosinophils Absolute Auto 100 /uL (0-450); Eosinophils Percent Auto 1.1 % (2-4); Hematocrit 29.6 % (36-46); Hemoglobin 9.7 g/dL (12.0-16.0); Lymphocytes Absolute Auto 1100 /uL (1100-4500); Lymphocytes Percent Auto 21.4 % (25-40); Mean Corpuscular HGB Conc 32.7 % (30-36); Mean Corpuscular Hemoglobin 24.2 PG (26-34); Monocytes Absolute Auto 500 /uL (0-900); Monocytes Percent Auto 8.7 % (3-14); Neutrophils Absolute Auto 3600 /uL (1500-7000); Neutrophils Percent Auto 68.1 % (50-75); Platelet Count 323 X10^3/uL (150-400); Red Cell Distribution Width 16.3 % (11.6-14.8); White Blood Cell Count 5.3 X10^3/uL (4.5-11.0)
[2024-02-12 15:40] LABS: Alanine Aminotransferase 50 IU/L (<35); Albumin Globulin Ratio 1.3 (1.0-2.8); Alkaline Phosphatase 119 U/L (38-126); Aspartate Aminotransferase 42 IU/L (14-36); Bilirubin Total 0.6 mg/dL (0.2-1.3); Blood Urea Nitrogen 18 mg/dL (7-17); Calcium 9.9 mg/dL (8.4-10.2); Carbon Dioxide 21 mmol/L (22-32); Chloride 105 mmol/L (98-107); Estimated Glomerular Filt Rate > 60 mL/min (>60); Glucose 103 mg/dL (70-100); HEMOLYSIS < 15 (0-50); Lipase 170 U/L (23-300); Potassium 4.1 mmol/L (3.4-5.1); Sodium 139 mmol/L (137-145)
[2024-02-12] MEDS: ONDANSETRON 4 MG/2 ML INJ IV (15:55)
[2024-02-12] MEDS: SODIUM CHLORIDE 0.9% 1,000 ML 1000 ML IV (16:48)
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
== END 2024-02-12 18:30 | disposition home or self-care (01) ==
PROVIDERS: Emergency Medicine; Emergency Provider Emergency Medicine; PCP Nurse Practitioner Family
DX: R11.2 Nausea with vomiting, unspecified (principal); R10.9 Unspecified abdominal pain
CPT/HCPCS: 36415; 80053; 81003; 81025; 83690; 85025; 96361; 96374; 99284; J2405

== ENCOUNTER 2024-04-24 13:44 | Emergency (ER) | payer OTHER, MEDICAID, SELFPAY ==
[2024-04-24] VITALS (8 sets, daily range): BP systolic 105–120; BP diastolic 63–74; PULSE 63–89; RESP 18; TEMP 36.3–36.8; O2SAT 97–100; BMI 27.4
--- NOTE | 2024-04-24 14:44 | ED.NAVMDI ---
HPI - Nausea/Vomiting/Diarrhea General Chief complaint: Nausea/Vomiting/Diarrhea Stated complaint: N/V/D Time Seen by Provider: 04/24/24 14:28 Source: patient Mode of arrival: Wheelchair History of Present Illness HPI Narrative: Patient is a 23-year-old female here for evaluation of upper abdominal pain and nausea and vomiting. She states the symptoms that she has currently are the same symptoms that she was seen at an outside emergency department for approximately 24-36 hours ago. He was able to review those notes. According to those notes she had a fairly extensive workup to include a CT scan of the abdomen pelvis. Was sent home with multiple medications to include both oral and rectal Phenergan. She states Zofran does not work for her. She has had symptoms like this in the past. She states she was told that it was related to marijuana use. She stated that she has not smoked for the past couple days. Denies any urinary symptoms. Related Data Home Medications Medication Instructions Recorded Confirmed omeprazole magnesium 20 mg 20 mg PO Q DAY ##0 07/31/11 tablet,delayed release (Prilosec OTC) montelukast 10 mg tablet 10 mg PO QDAY ##0 01/17/12 (Singulair) Previous Rx's Medication Instructions Recorded IBUPROFEN (#MOTRIN) 400 mg PO TIDP ##30 06/03/11 MOMETASONE FUROATE (Asmanex) 0.22 mg IH Q HS PRN ##1 01/31/12 ALBUTEROL (PROVENTIL INHALER) 0.09 mg IH Q6HP ##1 05/05/12 promethazine 25 mg tablet 25 mg PO Q6H PRN nausea and 02/12/24 vomiting #30 tabs Allergies Allergy/AdvReac Type Severity Reaction Status Date / Time Penicillins Allergy Severe Anaphylaxis Verified 04/24/24 13:56 bee venom protein (honey bee) Allergy Unknown LOCAL Verified 04/24/24 13:56 REACTION seafood Allergy Swelling Uncoded 01/11/24 17:25 of Lip/Tongue/Throat Review of Systems Constitutional Constitutional: Reports system reviewed and no additional complaints, except as documented Cardiovascular Cardiovascular: Reports system reviewed and no additional complaints, except as documented Respiratory Respiratory: Reports system reviewed and no additional complaints, except as documented Gastrointestinal Gastrointestinal: Reports system reviewed and no additional complaints, except as documented Genitourinary Genitourinary: Reports system reviewed and no additional complaints, except as documented Integumentary/Breasts Skin/Breast: Reports system reviewed and no additional complaints, except as documented Patient History Social History Smoking Status: Former smoker Smoking Status: Former smoker tobacco type: cigarettes alcohol intake frequency: 0-2 drinks per day Substance Use Type: marijuana Exam Initial Vital Signs Initial Vital Signs: Vital Signs Temperature 97.4 F L 04/24/24 13:57 Pulse Rate 88 04/24/24 13:57 Respiratory Rate 18 04/24/24 13:57 Blood Pressure 108/65 04/24/24 13:57 Pulse Oximetry 98 04/24/24 13:57 Oxygen Delivery Method Room Air 04/24/24 13:57 Const General: cooperative and No ill appearing HENMT Head: normal to inspection GI Inspection: normal to inspection and non-distended Palpation: No firm, No guarding and tender Skin General: no rashes or lesions noted Neuro General: patient alert, patient awake and moves all extremities Extrem General: capillary refill normal Course Orders Ordered: ED Orders 04/24/24 14:47 Complete Blood Count AUTO DIFF Stat Comprehensive Metabolic Panel Stat Lipase Stat Test Serum,Qual Stat 04/24/24 15:02 Urine Culture Stat Urine Microscopic Stat Discontinued Medications Haloperidol (Haloperidol 5 Mg/Ml Vial) 2.5 mg IV NOW ONE Stop: 04/24/24 14:46 Last Admin: 04/24/24 14:59 Dose: 2.5 mg Documented By: MIKHAIL Sodium Chloride (Normal Saline 0.9%) 1,000 mls @ 1,000 mls/hr IV BOLUS ONE Stop: 04/24/24 15:29 Last Infusion: 04/24/24 16:38 Dose: Infused Documented By: Admin: 04/24/24 14:58 Dose: 1,000 mls/hr Documented By: MIKHAIL Pantoprazole Sodium (Pantoprazole 40 Mg Vial) 40 mg IV NOW ONE Stop: 04/24/24 16:15 Last Admin: 04/24/24 16:38 Dose: 40 mg Documented By: MIKHAIL Vital Signs Vital signs: Vital Signs - 8 hr 04/24/24 13:57 04/24/24 14:28 04/24/24 14:29 Temperature 97.4 F L Pulse Rate 88 86 87 Respiratory Rate 18 Blood Pressure 108/65 Pulse Oximetry 98 100 100 Oxygen Delivery Method Room Air 04/24/24 14:29 04/24/24 14:30 04/24/24 14:30 Temperature Pulse Rate 89 Respiratory Rate Blood Pressure 112/63 105/70 Pulse Oximetry 100 Oxygen Delivery Method 04/24/24 15:00 04/24/24 15:30 04/24/24 16:00 Temperature Pulse Rate 78 63 89 Respiratory Rate Blood Pressure Pulse Oximetry 100 98 97 Oxygen Delivery Method 04/24/24 16:30 Temperature 98.3 F Pulse Rate Respiratory Rate Blood Pressure 120/74 Pulse Oximetry 98 Oxygen Delivery Method MDM - Nausea/Vomiting/Diarrhea Medical Records Attestation: I reviewed the patient's medical records. Lab Data Attestation: I reviewed the patient's lab results. 04/24/24 14:47 04/24/24 14:47 Labs: Lab Results 04/24/24 04/24/24 Range/Units 14:47 15:02 WBC 5.4 (4.5-11.0) X10^3/uL RBC 4.70 (4.0-5.2) X10^6/uL Hgb 10.2 L (12.0-16.0) g/dL Hct 31.9 L (36-46) % MCV 67.8 L (80-100) fL MCH 21.6 L (26-34) PG MCHC 31.9 (30-36) % RDW 18.6 H (11.6-14.8) % Plt Count 295 (150-400) X10^3/uL Neut % (Auto) 63.8 (50-75) % Lymph % (Auto) 29.0 (25-40) % [place] % (Auto) 6.2 (3-14) % Eos % (Auto) 0.1 L (2-4) % Baso % (Auto) 0.9 (0-2) % Neut # (Auto) 3500 (3592-1165) /uL Lymph # (Auto) 1600 (5921-3102) /uL [place] # (Auto) 300 (0-900) /uL Eos # (Auto) 0 (0-450) /uL Baso # (Auto) 0 (0-100) /uL RBC Morphology See below Anisocytosis 2+ H Microcytosis 1+ H Ovalocytes 1+ H Sodium 137 (137-145) mmol/L Potassium 3.3 L (3.4-5.1) mmol/L Chloride 108 H (98-107) mmol/L Carbon Dioxide 18 L (22-32) mmol/L BUN 10 (7-17) mg/dL Creatinine 0.60 (0.52-1.04) mg/dL Estimated GFR > 60 (>60) mL/min BUN/Creatinine Ratio 16.7 (6-22) Glucose 94 (70-100) mg/dL Calcium 9.1 (8.4-10.2) mg/dL Total Bilirubin 0.5 (0.2-1.3) mg/dL AST 22 (14-36) IU/L ALT 19 (<35) IU/L Alkaline Phosphatase 77 (38-126) U/L Total Protein 7.5 (6.3-8.2) g/dL Albumin 4.4 (3.5-5.0) g/dL Globulin 3.1 (1.7-4.1) g/dL Albumin/Globulin Ratio 1.4 (1.0-2.8) Lipase 209 (23-300) U/L Serum , Qual Negative (Negative) Urine RBC 0-1/hpf (0-5/HPF) Urine WBC 5-10/hpf H (0-5/HPF) Ur Squamous Epith Cells 1-5 /hpf (0-5/HPF) Amorphous Sediment 3+ Urine Bacteria Few (2-10) H (None) Ur Culture Indicated? Specimen cultured Vol Urine Centrifuged 10ml (spun) Point of Care Testing Test Results Negative Urine Dip Bedside Urine Glucose Negative Bedside Urine Bilirubin - Negative Bedside Urine Ketone +++ 80 Urine Specific [place] 1.010 Bedside Urine Occult Blood - Negative Bedside Urine pH 8.5 Bedside Urine Protein +/- 15 Bedside Urine Urobilinogen - Negative Bedside Urine Nitrite - Negative Bedside Urine Leukocytes ++ 125 Esterase MDM Narrative Medical decision making narrative: Like patient had a very extensive workup a couple days ago. We will hold on further CT scans for now. Labs are unremarkable. Patient was given a dose of Haldol. Potentially helped her symptoms somewhat but upon re-evaluation she stated that she would rather just be discharged home and take the medications that she has at home. No fevers. No indication for admission to hospital or surgical consultation. She was given return precautions. She expressed understanding and. Discharge Plan Departure Patient Disposition: Home Clinical Impression: Abdominal pain, Nausea & vomiting Instructions: DI for Abdominal Pain-Adult, Nausea and Vomiting-Adult Activity Restrictions/Additional Instructions: I recommend that you continue to take the medicine that you were given from the emergency department visit last evening. Try to increase your fluid intake by drinking small amounts frequently or potentially just using ice chips. I recommend that you abstain from smoking marijuana as this may make your symptoms worsen. Return to the emergency department for new symptoms. Prescriptions: No Action IBUPROFEN (#MOTRIN) 400 mg PO TIDP Qty: 30 0RF omeprazole magnesium [Prilosec OTC] 20 MG tablet,delayed release (DR/EC) 20 mg PO Q DAY Qty: 0 montelukast [Singulair] 10 MG tablet 10 mg PO QDAY Qty: 0 MOMETASONE FUROATE (Asmanex) 0.22 mg IH Q HS PRNQty: 1 1RF ALBUTEROL (PROVENTIL INHALER) 0.09 mg IH Q6HP Qty: 1 2RF promethazine 25 mg tablet 25 mg PO Q6H PRN (Reason: nausea and vomiting) Qty: 30 0RF Referrals: Nicolette Galvan ARNP [Primary Care Provider] - Stand Alone Forms: Patient Portal/API
[2024-04-24 14:53] LABS: Add Manual Diff / Slide Review NO; Basophils Absolute Auto 0 /uL (0-100); Basophils Percent Auto 0.9 % (0-2); Eosinophils Absolute Auto 0 /uL (0-450); Eosinophils Percent Auto 0.1 % (2-4); Hematocrit 31.9 % (36-46); Hemoglobin 10.2 g/dL (12.0-16.0); Lymphocytes Absolute Auto 1600 /uL (1100-4500); Mean Corpuscular HGB Conc 31.9 % (30-36); Mean Corpuscular Hemoglobin 21.6 PG (26-34); Mean Corpuscular Volume 67.8 fL (80-100); Monocytes Absolute Auto 300 /uL (0-900); Monocytes Percent Auto 6.2 % (3-14); Neutrophils Absolute Auto 3500 /uL (1500-7000); Neutrophils Percent Auto 63.8 % (50-75); Platelet Count 295 X10^3/uL (150-400); Red Cell Distribution Width 18.6 % (11.6-14.8); White Blood Cell Count 5.4 X10^3/uL (4.5-11.0)
[2024-04-24] MEDS: SODIUM CHLORIDE 0.9% 1,000 ML 1000 ML IV (14:58)
[2024-04-24] MEDS: HALOPERIDOL 5 MG/ML VIAL 2.5 MG IV (14:59)
[2024-04-24 15:05] LABS: Alanine Aminotransferase 19 IU/L (<35); Albumin 4.4 g/dL (3.5-5.0); Albumin Globulin Ratio 1.4 (1.0-2.8); Alkaline Phosphatase 77 U/L (38-126); Aspartate Aminotransferase 22 IU/L (14-36); BUN Creatinine Ratio 16.7 (6-22); Bilirubin Total 0.5 mg/dL (0.2-1.3); Blood Urea Nitrogen 10 mg/dL (7-17); Calcium 9.1 mg/dL (8.4-10.2); Carbon Dioxide 18 mmol/L (22-32); Chloride 108 mmol/L (98-107); Estimated Glomerular Filt Rate > 60 mL/min (>60); Globulin 3.1 g/dL (1.7-4.1); Glucose 94 mg/dL (70-100); HEMOLYSIS < 15 (0-50); Lipase 209 U/L (23-300); Potassium 3.3 mmol/L (3.4-5.1); Sodium 137 mmol/L (137-145); Total Protein 7.5 g/dL (6.3-8.2)
[2024-04-24 15:13] LABS: Anisocytosis 2+
[2024-04-24 15:14] LABS: Microcytosis 1+; Ovalocytes 1+
[2024-04-24 15:15] LABS: Pregnancy Test Serum,Qual Negative (Negative)
[2024-04-24 16:02] LABS: RBC Urine 0-1/HPF (0-5/HPF); Urine Volume 10mL (spun)
[2024-04-24 16:03] LABS: Amorphous Sediment Urine 3+; Bacteria Urine Few (2-10); Culture Indicated Urine Specimen Cultured; Squamous Epithelial Cell Urine 1-5 /HPF (0-5/HPF); WBC Urine 5-10/HPF (0-5/HPF)
[2024-04-24] MEDS: PANTOPRAZOLE 40 MG VIAL IV (16:38)
--- NOTE | 2024-04-24 16:47 | PC.NURSE ---
N/V x3 days. Pt states droperidol helps her nausea. Pt seen for same recently.
== END 2024-04-24 16:48 | disposition home or self-care (01) ==
PROVIDERS: Emergency Provider Emergency Medicine; PCP Nurse Practitioner Family
DX: R10.10 Upper abdominal pain, unspecified (principal); R11.2 Nausea with vomiting, unspecified
CPT/HCPCS: 80053; 81003; 81015; 81025; 83690; 84703; 85025; 87077; 87086; 87147; 96361; 96374; 96375; 99283; 99284; J1630; J2470

== ENCOUNTER 2024-06-11 10:53 | Emergency (ER) | payer OTHER, MEDICAID, SELFPAY ==
[2024-06-11] VITALS (11 sets, daily range): BP systolic 99–121; BP diastolic 57–80; PULSE 68–103; RESP 10–15; TEMP 36.7; O2SAT 94–100; BMI 29.1
[2024-06-11] MEDS: PANTOPRAZOLE 40 MG VIAL IV (11:34)
[2024-06-11] MEDS: SODIUM CHLORIDE 0.9% 1,000 ML 1000 ML IV ×2 (11:35→14:10)
[2024-06-11 11:43] LABS: Alanine Aminotransferase 48 IU/L (<35); Albumin 4.9 g/dL (3.5-5.0); Albumin Globulin Ratio 1.2 (1.0-2.8); Alkaline Phosphatase 95 U/L (38-126); Aspartate Aminotransferase 28 IU/L (14-36); BUN Creatinine Ratio 25.4 (6-22); Bilirubin Total 0.7 mg/dL (0.2-1.3); Blood Urea Nitrogen 18 mg/dL (7-17); Calcium 9.9 mg/dL (8.4-10.2); Carbon Dioxide 21 mmol/L (22-32); Chloride 102 mmol/L (98-107); Estimated Glomerular Filt Rate > 60 mL/min (>60); Globulin 4.1 g/dL (1.7-4.1); Glucose 119 mg/dL (70-100); HEMOLYSIS < 15 (0-50); Lipase 104 U/L (23-300); Potassium 3.2 mmol/L (3.4-5.1); Sodium 137 mmol/L (137-145)
[2024-06-11 11:54] LABS: Add Manual Diff / Slide Review NO; Basophils Absolute Auto 0 /uL (0-100); Basophils Percent Auto 0.8 % (0-2); Eosinophils Absolute Auto 0 /uL (0-450); Hematocrit 34.8 % (36-46); Hemoglobin 11.2 g/dL (12.0-16.0); Lymphocytes Absolute Auto 1200 /uL (1100-4500); Lymphocytes Percent Auto 19.6 % (25-40); Mean Corpuscular HGB Conc 32.2 % (30-36); Mean Corpuscular Volume 68.4 fL (80-100); Monocytes Absolute Auto 300 /uL (0-900); Monocytes Percent Auto 5.4 % (3-14); Neutrophils Absolute Auto 4700 /uL (1500-7000); Neutrophils Percent Auto 74.2 % (50-75); Platelet Count 305 X10^3/uL (150-400); Red Blood Cell Count 5.08 X10^6/uL (4.0-5.2); White Blood Cell Count 6.3 X10^3/uL (4.5-11.0)
[2024-06-11] MEDS: ONDANSETRON 4 MG/2 ML INJ IV (12:12)
[2024-06-11 12:17] LABS: Anisocytosis 2+; Microcytosis 1+
[2024-06-11 12:26] LABS: Urine Volume 10mL (spun)
[2024-06-11 12:32] LABS: Bacteria Urine None Seen; Culture Indicated Urine Cult Not Indicated; Mucus Urine 2+ (Negative); RBC Urine None Seen (0-5/HPF); Squamous Epithelial Cell Urine 1-5 /HPF (0-5/HPF); WBC Urine None Seen (0-5/HPF)
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
[2024-06-11] MEDS: METOCLOPRAMIDE 10 MG/2 ML INJ IV (14:09)
[2024-06-11] MEDS: KETOROLAC 30 MG/ML VIAL 15 MG IV (14:20)
== END 2024-06-11 16:03 | disposition home or self-care (01) ==
PROVIDERS: Emergency Provider Emergency Medicine; PCP Nurse Practitioner Family
DX: K52.9 Noninfective gastroenteritis and colitis, unspecified (principal); R11.2 Nausea with vomiting, unspecified
CPT/HCPCS: 36415; 80053; 81003; 81015; 81025; 83690; 85025; 96361; 96374; 96375; 96376; 99284; J1885; J2405; J2470; J2765

== ENCOUNTER 2024-06-12 15:01 | Emergency (ER) | payer OTHER, MEDICAID, SELFPAY ==
[2024-06-12] VITALS (8 sets, daily range): BP systolic 97–129; BP diastolic 54–84; PULSE 70–106; RESP 15–17; TEMP 36.8; O2SAT 96–100; BMI 29.1
--- NOTE | 2024-06-12 15:18 | ED.NAVMDI ---
HPI - Nausea/Vomiting/Diarrhea General Chief complaint: Nausea/Vomiting/Diarrhea Stated complaint: vomiting since friday Time Seen by Provider: 06/12/24 15:12 Source: patient Mode of arrival: Ambulatory History of Present Illness HPI Narrative: Patient is a 23-year-old female presenting today with ongoing nausea vomiting. I saw and evaluated her yesterday she would some diarrhea and vomiting at that time. She had blood work and was given medication to go home with. She says that she has been persistently vomiting medication isn't working. She has ongoing abdominal pain and burning in her chest. Related Data Home Medications Medication Instructions Recorded Confirmed omeprazole magnesium 20 mg 20 mg PO Q DAY ##0 07/31/11 tablet,delayed release (Prilosec OTC) montelukast 10 mg tablet 10 mg PO QDAY ##0 01/17/12 (Singulair) Previous Rx's Medication Instructions Recorded IBUPROFEN (#MOTRIN) 400 mg PO TIDP ##30 06/03/11 MOMETASONE FUROATE (Asmanex) 0.22 mg IH Q HS PRN ##1 01/31/12 ALBUTEROL (PROVENTIL INHALER) 0.09 mg IH Q6HP ##1 05/05/12 promethazine 25 mg tablet 25 mg PO Q6H PRN nausea and 02/12/24 vomiting #30 tabs promethazine 25 mg tablet 25 mg PO Q6H PRN nausea and 06/11/24 vomiting #15 tabs promethazine 25 mg rectal 25 mg IN Q6H PRN nausea and 06/12/24 suppository vomiting #12 ea Allergies Allergy/AdvReac Type Severity Reaction Status Date / Time Penicillins Allergy Severe Anaphylaxis Verified 06/12/24 15:07 bee venom protein (honey bee) Allergy Unknown LOCAL Verified 06/12/24 15:07 REACTION seafood Allergy Swelling Uncoded 01/11/24 17:25 of Lip/Tongue/Throat Patient History Social History Smoking Status: Former smoker Smoking Status: Former smoker tobacco type: cigarettes alcohol intake frequency: holidays/special occasions only Substance Use Type: marijuana Exam Initial Vital Signs Initial Vital Signs: Vital Signs Temperature 98.2 F 06/12/24 15:02 Pulse Rate 106 H 06/12/24 15:02 Respiratory Rate 17 06/12/24 15:02 Blood Pressure 114/84 06/12/24 15:02 Pulse Oximetry 100 06/12/24 15:02 Oxygen Delivery Method Room Air 06/12/24 15:02 GENERAL: 23-year-old female appears to not feel well and in no acute distress. HEENT: Head atraumatic,EOMI, pupils reactive, face symmetric, moist mucous membranes CARDIOVASCULAR: Regular rate and rhythm without murmurs, rubs or gallops. RESPIRATORY: Breath sounds equal bilaterally, no wheezes rales or rhonchi. ABDOMEN: Soft, nontender. Normoactive bowel sounds all 4 quadrants. No guarding or rebound. EXTREMITIES: Normal range of motion, no clubbing or edema. Neurovascularly intact NEUROLOGICAL: Alert and oriented x4.Normal gait and speech. Cranial nerves II through XII grossly intact. SKIN: Warm, dry, no laceration, no petechiae, no rashes or lesions. Course Orders Ordered: Discontinued Medications Droperidol (Droperidol 5 Mg/2 Ml Vial) 5 mg IV NOW ONE Stop: 06/12/24 15:21 Last Admin: 06/12/24 15:26 Dose: 5 mg Documented By: PETRONA Sodium Chloride (Normal Saline 0.9%) 1,000 mls @ 1,000 mls/hr IV BOLUS ONE Stop: 06/12/24 16:11 Last Infusion: 06/12/24 17:04 Dose: Infused Documented By: Admin: 06/12/24 15:26 Dose: 1,000 mls/hr Documented By: PETRONA POTASSIUM CHLORIDE IN WATER (Potassium Cl 10 Meq/100 Ml Isi) 10 meq in 100 mls @ 100 mls/hr IV Q1H TISHA Stop: 06/12/24 17:59 Last Infusion: 06/12/24 18:32 Dose: Infused Documented By: Admin: 06/12/24 17:27 Dose: 100 mls/hr Documented By: Infusion: 06/12/24 17:27 Dose: Infused Documented By: Infusion: 06/12/24 16:08 Dose: 0 mls/hr Documented By: Admin: 06/12/24 16:08 Dose: 100 mls/hr Documented By: PETRONA Sodium Chloride (Normal Saline 0.9%) 1,000 mls @ 1,000 mls/hr IV BOLUS ONE Stop: 06/12/24 16:57 Last Infusion: 06/12/24 18:32 Dose: Infused Documented By: Admin: 06/12/24 16:09 Dose: 1,000 mls/hr Documented By: BS Lorazepam (Lorazepam 2 Mg/Ml Inj) 0.5 mg IV NOW ONE Stop: 06/12/24 15:42 Lorazepam (Lorazepam 2 Mg/Ml Inj) 1 mg IV NOW ONE Stop: 06/12/24 15:43 Last Admin: 06/12/24 15:45 Dose: 1 mg Documented By: BS Ondansetron HCl (Ondansetron 4 Mg/2 Ml Inj) 4 mg IV NOW ONE Stop: 06/12/24 15:13 Last Admin: 06/12/24 15:26 Dose: 4 mg Documented By: BS Pantoprazole Sodium (Pantoprazole 40 Mg Vial) 40 mg IV NOW ONE Stop: 06/12/24 15:13 Last Admin: 06/12/24 15:26 Dose: 40 mg Documented By: PETRONA Vital Signs Vital signs: Vital Signs - 8 hr 06/12/24 15:02 Temperature 98.2 F Pulse Rate 106 H Respiratory Rate 17 Blood Pressure 114/84 Pulse Oximetry 100 Oxygen Delivery Method Room Air MDM - Nausea/Vomiting/Diarrhea Lab Data 06/12/24 15:15 06/12/24 15:15 Labs: Lab Results 06/12/24 Range/Units 15:15 WBC 5.8 (4.5-11.0) X10^3/uL RBC 4.69 (4.0-5.2) X10^6/uL Hgb 10.3 L (12.0-16.0) g/dL Hct 32.2 L (36-46) % MCV 68.7 L (80-100) fL MCH 22.1 L (26-34) PG MCHC 32.1 (30-36) % RDW 20.9 H (11.6-14.8) % Plt Count 247 (150-400) X10^3/uL Neut % (Auto) 59.9 (50-75) % Lymph % (Auto) 32.9 (25-40) % [place] % (Auto) 6.6 (3-14) % Eos % (Auto) 0.1 L (2-4) % Baso % (Auto) 0.5 (0-2) % Neut # (Auto) 3500 (7336-6607) /uL Lymph # (Auto) 1900 (9652-4236) /uL [place] # (Auto) 400 (0-900) /uL Eos # (Auto) 0 (0-450) /uL Baso # (Auto) 0 (0-100) /uL RBC Morphology See below Anisocytosis 1+ H Microcytosis 1+ H Sodium 138 (137-145) mmol/L Potassium 2.9 L (3.4-5.1) mmol/L Chloride 105 (98-107) mmol/L Carbon Dioxide 20 L (22-32) mmol/L BUN 14 (7-17) mg/dL Creatinine 0.72 (0.52-1.04) mg/dL Estimated GFR > 60 (>60) mL/min BUN/Creatinine Ratio 19.4 (6-22) Glucose 91 (70-100) mg/dL Calcium 9.3 (8.4-10.2) mg/dL Total Bilirubin 0.6 (0.2-1.3) mg/dL AST 22 (14-36) IU/L ALT 17 (<35) IU/L Alkaline Phosphatase 80 (38-126) U/L Total Protein 8.0 (6.3-8.2) g/dL Albumin 4.5 (3.5-5.0) g/dL Globulin 3.5 (1.7-4.1) g/dL Albumin/Globulin Ratio 1.3 (1.0-2.8) Lipase 280 D (23-300) U/L Serum , Qual Negative (Negative) MDM Narrative Medical decision making narrative: [facility] CC: Nausea vomiting Complicating co-morbidities: Regular marijuana seen evaluated yesterday Medical records reviewed: ED records from previous Differential considered: Cyclic vomiting hyperemesis Exam documented above, pertinent findings include: Mild epigastric pain abdomen is otherwise soft and nondistended Lab Test results independently reviewed as above. Pertinent findings: CBC no leukocytosis WBCs 5.8, hemoglobin 10.3 hematocrit 32.2 CMP shows mild hypokalemia of 2.9 yesterday was 3.2 other electrolytes are stable creatinine 0.7 Independently reviewed EKG as above Imaging studies independently reviewed: Consultations: [ ] Treatments: IV fluids 2 L Protonix Zofran, potassium 20 mEq She received droperidol but then had extrapyramidal symptoms she was given 1 mg of Ativan Re-evaluations: Patient had skin crawling reaction after droperidol she was given 1 mg of Ativan and fell asleep 1750 patient tolerated ice chips overall feeling much better no longer vomiting Discussion: Patient is a 23-year-old female who presents today with ongoing nausea vomiting for last few days. She is mildly hypokalemic giving potassium replaced. Abdomen is soft. Blood work is overall reassuring without leukocytosis or severe dehydration. She did have a reaction to droperidol and was given Ativan in sleeping. Discharge Plan Departure Patient Disposition: Home Clinical Impression: Cyclical vomiting, Acute hypokalemia Instructions: DI for Vomiting -- Adult Activity Restrictions/Additional Instructions: *You have been diagnosed with cyclic vomiting, low potassium *What to do: Increase fluids as tolerated please have your potassium rechecked with your primary care provider I recommended electrolyte fluid if you are not eating *Continue to take medications as directed Phenergan suppository *Follow up with your primary care provider in 2-3 days or call [phone] *Return to ER if you should have persistent vomiting increased abdominal pain or any new, worsening or concerning symptoms Prescriptions: New promethazine 25 mg suppository 25 mg IN Q6H PRN (Reason: nausea and vomiting) Qty: 12 0RF No Action IBUPROFEN (#MOTRIN) 400 mg PO TIDP Qty: 30 0RF omeprazole magnesium [Prilosec OTC] 20 MG tablet,delayed release (DR/EC) 20 mg PO Q DAY Qty: 0 montelukast [Singulair] 10 MG tablet 10 mg PO QDAY Qty: 0 MOMETASONE FUROATE (Asmanex) 0.22 mg IH Q HS PRNQty: 1 1RF ALBUTEROL (PROVENTIL INHALER) 0.09 mg IH Q6HP Qty: 1 2RF promethazine 25 mg tablet 25 mg PO Q6H PRN (Reason: nausea and vomiting) Qty: 30 0RF promethazine 25 mg tablet 25 mg PO Q6H PRN (Reason: nausea and vomiting) Qty: 15 0RF Referrals: Nicolette Galvan ARNP [Primary Care Provider] - Stand Alone Forms: Patient Portal/API
[2024-06-12] MEDS: DROPERIDOL 5 MG/2 ML VIAL IV (15:26)
[2024-06-12] MEDS: ONDANSETRON 4 MG/2 ML INJ IV (15:26)
[2024-06-12] MEDS: SODIUM CHLORIDE 0.9% 1,000 ML 1000 ML IV ×2 (15:26→16:09)
[2024-06-12] MEDS: PANTOPRAZOLE 40 MG VIAL IV (15:26)
[2024-06-12 15:40] LABS: Basophils Absolute Auto 0 /uL (0-100); Basophils Percent Auto 0.5 % (0-2); Eosinophils Absolute Auto 0 /uL (0-450); Eosinophils Percent Auto 0.1 % (2-4); Hematocrit 32.2 % (36-46); Hemoglobin 10.3 g/dL (12.0-16.0); Lymphocytes Absolute Auto 1900 /uL (1100-4500); Lymphocytes Percent Auto 32.9 % (25-40); Mean Corpuscular HGB Conc 32.1 % (30-36); Mean Corpuscular Hemoglobin 22.1 PG (26-34); Mean Corpuscular Volume 68.7 fL (80-100); Monocytes Absolute Auto 400 /uL (0-900); Monocytes Percent Auto 6.6 % (3-14); Neutrophils Absolute Auto 3500 /uL (1500-7000); Neutrophils Percent Auto 59.9 % (50-75); Platelet Count 247 X10^3/uL (150-400); Red Blood Cell Count 4.69 X10^6/uL (4.0-5.2); Red Cell Distribution Width 20.9 % (11.6-14.8); White Blood Cell Count 5.8 X10^3/uL (4.5-11.0)
[2024-06-12 15:41] LABS: Add Manual Diff / Slide Review SLIDE REVIEW; Alanine Aminotransferase 17 IU/L (<35); Albumin 4.5 g/dL (3.5-5.0); Albumin Globulin Ratio 1.3 (1.0-2.8); Alkaline Phosphatase 80 U/L (38-126); Aspartate Aminotransferase 22 IU/L (14-36); BUN Creatinine Ratio 19.4 (6-22); Bilirubin Total 0.6 mg/dL (0.2-1.3); Blood Urea Nitrogen 14 mg/dL (7-17); Calcium 9.3 mg/dL (8.4-10.2); Carbon Dioxide 20 mmol/L (22-32); Chloride 105 mmol/L (98-107); Estimated Glomerular Filt Rate > 60 mL/min (>60); Globulin 3.5 g/dL (1.7-4.1); Glucose 91 mg/dL (70-100); HEMOLYSIS < 15 (0-50); Lipase 280 U/L (23-300); Potassium 2.9 mmol/L (3.4-5.1); Sodium 138 mmol/L (137-145)
[2024-06-12] MEDS: LORazepam 2 MG/ML INJ 1 MG IV (15:45)
[2024-06-12] MEDS: POTASSIUM CHLORIDE IN WATER 10 MEQ/100 ML PIGGYBACK 100 MEQ IV ×2 (16:08→17:27)
[2024-06-12 16:13] LABS: Anisocytosis 1+; Microcytosis 1+
[2024-06-12 18:28] LABS: Pregnancy Test Serum,Qual Negative (Negative)
== END 2024-06-12 18:44 | disposition home or self-care (01) ==
PROVIDERS: Emergency Medicine; Emergency Provider Emergency Medicine; PCP Nurse Practitioner Family
DX: R11.15 Cyclical vomiting syndrome unrelated to migraine (principal); E87.6 Hypokalemia; R10.13 Epigastric pain
CPT/HCPCS: 36415; 80053; 83690; 84703; 85025; 96361; 96365; 96375; 99284; J1790; J2060; J2405; J2470